=== PATIENT | female | born 1985 | race Caucasian/White ===

== ENCOUNTER 2020-05-24 18:13 | Observation (INO) | payer MEDICAID, SELFPAY ==
[~2020-05-24] VITALS: Ht 165.1 cm; Wt 101.6 kg
[2020-05-24] MEDS ORDERED: LACTATED RINGERS 1,000 ML IV SCH (18:55)
[2020-05-24] MEDS ORDERED: BETAMETH ACET/BETAMETH NA PH 30 MG/5 ML VIAL IM ONE (19:07)
[2020-05-24 19:20] LABS: APPEARANCE,URINE CLEAR (CLEAR); BILIRUBIN,URINE NEGATIVE (NEGATIVE); BLOOD, URINE NEGATIVE (NEGATIVE); COLOR,URINE YELLOW (YELLOW); LEUKOCYTE ESTERASE ,URINE NEGATIVE (NEGATIVE); NITRITE, URINE NEGATIVE (NEGATIVE); PH,URINE 5.5 (5.0-9.0); UGLUCOSE 1+ (NEGATIVE)
[2020-05-24 19:31] LABS: BARBITURATE, URINE NEGATIVE ng/ml (NEG <=200); BENZODIAZEPINE, URINE NEGATIVE ng/mL (NEG <=200); CANNABINOID, URINE POSITIVE ng/mL (NEG <=50); COCAINE, URINE NEGATIVE ng/mL (NEG <=300); OPIATE, URINE NEGATIVE ng/mL (NEG <=2000); PHENCYCLIDINE SCREEN,URINE NEGATIVE ng/mL (NEG <=25)
[2020-05-24 20:19] VITALS: BP 149/97
== END 2020-05-24 19:25 | disposition home or self-care (01) ==
LOC: MLD 18:13
PROVIDERS: ADMIT Obstetrics & Gynecology; ATTEND Obstetrics & Gynecology
DX: O26.893 Other specified pregnancy related conditions, third trimester (principal); Z20.828 Contact with and (suspected) exposure to other viral communicable diseases; R10.9 Unspecified abdominal pain; O99.891 Other specified diseases and conditions complicating pregnancy; M54.9 Dorsalgia, unspecified; Z3A.36 36 weeks gestation of pregnancy
CPT/HCPCS: 59025; 80305; 81003; 87426; 87653; 96372; G0378; J0702

== ENCOUNTER 2020-05-25 19:09 | Observation (INO) | payer MEDICAID, SELFPAY ==
[~2020-05-25] VITALS: Ht 165.1 cm; Wt 99.8 kg
[2020-05-25 19:38] VITALS: BP 146/74
[2020-05-25] MEDS ORDERED: BETAMETH ACET/BETAMETH NA PH 30 MG/5 ML VIAL IM ONE (19:45)
[2020-05-25] MEDS ORDERED: BETAMETH ACET/BETAMETH NA PH 30 MG/5 ML VIAL IM SCH (20:40)
== END 2020-05-25 20:30 | disposition home or self-care (01) ==
LOC: MLD 19:09
PROVIDERS: ADMIT Obstetrics & Gynecology; ATTEND Obstetrics & Gynecology
DX: O26.893 Other specified pregnancy related conditions, third trimester (principal); R10.9 Unspecified abdominal pain; O99.891 Other specified diseases and conditions complicating pregnancy; M54.5 Low back pain; Z3A.36 36 weeks gestation of pregnancy
CPT/HCPCS: 59025; 96372; G0378; J0702

== ENCOUNTER 2020-05-29 03:05 | Inpatient (IN) | payer MEDICAID, SELFPAY ==
[~2020-05-29] VITALS: Ht 165.1 cm; Wt 99.8 kg
[2020-05-29] MEDS ORDERED: MORPHINE SULFATE 2 MG/ML SYR IVP PRN (04:10)
[2020-05-29] MEDS ORDERED: ONDANSETRON 4 MG/2 ML VIAL IVP PRN ×3 (04:10→06:10)
[2020-05-29] MEDS ORDERED: LACTATED RINGERS 1,000 ML IV SCH (04:35)
[2020-05-29] MEDS ORDERED: CITRIC ACID/SODIUM CITRATE 30 ML UDC PO SCH (04:35)
[2020-05-29] MEDS ORDERED: CITRIC ACID/SODIUM CITRATE 30 ML UDC ONE (04:52)
[2020-05-29] MEDS ORDERED: ceFAZolin 1,000 MG VIAL ONE (04:52)
[2020-05-29] MEDS ORDERED: MORPHINE PRES FREE 10 MG/10 ML AMP IV ONE (05:00)
[2020-05-29] MEDS ORDERED: MORPHINE SULFATE 10 MG/ML VIAL ONE (05:12)
[2020-05-29] MEDS ORDERED: DEXAMETHASONE 4 MG/ML VIAL ONE (05:28)
[2020-05-29] MEDS ORDERED: ONDANSETRON 4 MG/2 ML VIAL ONE (05:28)
[2020-05-29] MEDS ORDERED: ePHEDrine 50 MG/ML VIAL ONE (05:28)
[2020-05-29] MEDS ORDERED: METOCLOPRAMIDE 10 MG/2 ML INJ VIAL ONE (05:28)
[2020-05-29 05:30] LABS: BASOPHILS % (AUTO) 0.3 % (0.0-2.0); EOSINOPHILS # (AUTO) 0.1 K/uL (0-0.4); EOSINOPHILS % (AUTO) 0.6 % (0.0-4.0); HEMATOCRIT 35.6 % (36-48); HEMOGLOBIN 11.5 g/dL (12.0-16.0); LYMPHOCYTES # (AUTO) 2.6 K/uL (2.5-16.5); LYMPHOCYTES % (AUTO) 26.9 % (20.5-51.1); MEAN CORPUSCULAR HEMOGLOBIN 25 pg (27-31); MEAN CORPUSCULAR HGB CONC 32 g/dL (33-37); MEAN CORPUSCULAR VOLUME 77.2 fL (80-94); MONOCYTES # (AUTO) 1.1 K/uL (0.8-1.0); MONOCYTES % (AUTO) 11.9 % (1.7-9.3); NEUTROPHILS # (AUTO) 5.8 K/uL (1.8-7.7); NEUTROPHILS % (AUTO) 60.3 % (42.2-75.2); PLATELET COUNT (AUTO) 197 K/uL (140-450); RED BLOOD CELL COUNT(AUTO) 4.61 MIL/uL (4.20-5.40); WHITE BLOOD COUNT (AUTO) 9.6 K/uL (4.8-10.8)
[2020-05-29 06:03] LABS: ALBUMIN 2.6 g/dL (3.4-5.0); ANION GAP 14.3 (8-16); CREATININE 0.8 mg/dL (0.6-1.3); POTASSIUM 4.3 mmol/L (3.5-5.1); TOTAL BILIRUBIN 0.3 mg/dL (0.0-1.0)
[2020-05-29 06:06] LABS: APPEARANCE,URINE CLEAR (CLEAR); BILIRUBIN,URINE NEGATIVE (NEGATIVE); BLOOD, URINE TRACE-I (NEGATIVE); COLOR,URINE YELLOW (YELLOW); LEUKOCYTE ESTERASE ,URINE NEGATIVE (NEGATIVE); NITRITE, URINE NEGATIVE (NEGATIVE); PH,URINE 5.5 (5.0-9.0); UGLUCOSE NEGATIVE (NEGATIVE)
[2020-05-29] MEDS ORDERED: NALOXONE 0.4 MG/ML VIAL IVP PRN ×3 (06:10)
[2020-05-29] MEDS ORDERED: MEPERIDINE 25 MG/ML SYR IVP PRN (06:10)
[2020-05-29] MEDS ORDERED: OXYTOCIN 20 UNITS in LACTATED RINGERS 1,000 ML IV SCH ×2 (06:10→06:40)
[2020-05-29] MEDS ORDERED: diphenhydrAMINE 50 MG/ML VIAL IVP PRN ×2 (06:10)
[2020-05-29] MEDS ORDERED: HYDROmorphone 1 MG/ML AMP IVP PRN (06:10)
[2020-05-29 06:20] LABS: BARBITURATE, URINE NEGATIVE ng/ml (NEG <=200); BENZODIAZEPINE, URINE NEGATIVE ng/mL (NEG <=200); CANNABINOID, URINE POSITIVE ng/mL (NEG <=50); COCAINE, URINE NEGATIVE ng/mL (NEG <=300); OPIATE, URINE NEGATIVE ng/mL (NEG <=2000); PHENCYCLIDINE SCREEN,URINE NEGATIVE ng/mL (NEG <=25)
[2020-05-29 06:31] LABS: RBC,URINE 0-5 /HPF (0-5); WBC,URINE 0-5 /HPF (0-5)
[2020-05-29] MEDS ORDERED: METHYLERGONOVINE 0.2 MG/ML AMP IM PRN (06:40)
[2020-05-29] MEDS ORDERED: MEASLES, MUMPS, AND RUBELLA 1 VIAL SQVAC PRN (06:40)
[2020-05-29] MEDS ORDERED: OXYTOCIN 20 UNITS/LR PREMIX 1,000 ML IV ONE ×3 (06:47→23:27)
[2020-05-29] MEDS ORDERED: bisacodyL 10 MG SUPP RC SCH (09:00)
--- NOTE | 2020-05-29 09:32 | NUR ---
PATIENT HAS BEEN SCREENED AND CATEGORIZED LOW NUTRITION RISK. PATIENT WILL BE SEEN WITHIN 7 DAYS OF ADMISSION. 06/04/[address]
[2020-05-29] MEDS: KETOROLAC 30 MG/ML VIAL IM/IVP SCH ×3 (12:25→23:52)
[2020-05-29] MEDS ORDERED: PROMETHAZINE 25 MG/ML VIAL IVP PRN (18:45)
[2020-05-30] MEDS: KETOROLAC 30 MG/ML VIAL IM/IVP SCH (06:02)
[2020-05-30 06:57] LABS: BASOPHILS % (AUTO) 0.2 % (0.0-2.0); EOSINOPHILS % (AUTO) 0.3 % (0.0-4.0); HEMATOCRIT 27.6 % (36-48); HEMOGLOBIN 8.9 g/dL (12.0-16.0); LYMPHOCYTES # (AUTO) 2.2 K/uL (2.5-16.5); LYMPHOCYTES % (AUTO) 16.6 % (20.5-51.1); MEAN CORPUSCULAR HEMOGLOBIN 25 pg (27-31); MEAN CORPUSCULAR HGB CONC 32 g/dL (33-37); MONOCYTES # (AUTO) 1.2 K/uL (0.8-1.0); MONOCYTES % (AUTO) 9.4 % (1.7-9.3); NEUTROPHILS # (AUTO) 9.6 K/uL (1.8-7.7); NEUTROPHILS % (AUTO) 73.5 % (42.2-75.2); PLATELET COUNT (AUTO) 149 K/uL (140-450); RED BLOOD CELL COUNT(AUTO) 3.58 MIL/uL (4.20-5.40); RED CELL DISTRIBUTION WIDTH 16.1 % (11.6-13.7); WHITE BLOOD COUNT (AUTO) 13.1 K/uL (4.8-10.8)
[2020-05-30] MEDS: oxyCODONE/APAP 5/325 MG 1 TAB TAB PO PRN ×2 (08:54→12:37)
== END 2020-05-30 15:15 | disposition home or self-care (01) | DRG 540 ==
LOC: MLD 03:05 → OBSVTOIN 04:06 → MFCC 07:40
PROVIDERS: ADMIT Obstetrics & Gynecology; ATTEND Obstetrics & Gynecology
PROC: 10D00Z1 Extraction of Products of Conception, Low, Open Approach (ICD-10-PCS; principal; 2020-05-29 04:45)
DX: O34.211 Maternal care for low transverse scar from previous cesarean delivery (principal); O60.23X0 Term delivery with preterm labor, third trimester, not applicable or unspecified; Z37.0 Single live birth; Z3A.37 37 weeks gestation of pregnancy; O99.02 Anemia complicating childbirth; D62 Acute posthemorrhagic anemia; O24.92 Unspecified diabetes mellitus in childbirth; Z91.018 Allergy to other foods
CPT/HCPCS: 36415; 80053; 80305; 81001; 85025; 86592; 86762; 86886; 86900; 86901; 87340; G0378; J0690; J1100; J1885; J2270; J2405; J2590; J2765; J7120

== ENCOUNTER 2021-03-19 12:31 | Observation (INO) | payer MEDICAID, SELFPAY ==
[~2021-03-19] VITALS: Ht 165.1 cm; Wt 81.6 kg
[2021-03-19] MEDS ORDERED: MORPHINE SULFATE 4 MG/ML SYR ONE (12:41)
--- NOTE | 2021-03-19 12:49 | NUR ---
42 Y/O F BIBA FROM HOME, C/O PELVIC PAIN THAT STARTED TODAY. PT STATES SHE DIDNT KNOW SHE WAS , MOTHER STATES "WATER BROKE OUT AT HOME". PT VISIBLY IN DISTRESS AT THIS TIME, C/O EXTREME PAIN. DENIES N/V/D; SKIN IS PINK/WARM/DRY; AAOX4 ; LUNGS CLEAR BL; HR EVEN AND REGULAR; PT DENIES ANY FEVER, CP, SOB, OR COUGH AT THIS TIME; PATIENT STATES PAIN OF 10/10 AT THIS TIME; VSS; PATIENT POSITIONED FOR COMFORT; HOB ELEVATED; BEDRAILS UP X2; BED DOWN. ER MD MADE AWARE OF PT STATUS. PMH: DENIES NKA MED: DENIES 8G 3T 0P 5A 3L
[2021-03-19 12:50] VITALS: BP 134/83
--- NOTE | 2021-03-19 12:50 | NUR ---
US AT BEDSIDE.
[2021-03-19] MEDS ORDERED: MORPHINE SULFATE 4 MG/ML SYR IVP ONE ×2 (13:00→13:05)
--- NOTE | 2021-03-19 13:00 | NUR ---
PT UNABLE TO GIVE URINE AT THIS TIME.
[2021-03-19 13:08] LABS: BASOPHILS % (AUTO) 0.1 % (0.0-2.0); EOSINOPHILS % (AUTO) 0.2 % (0.0-4.0); HEMOGLOBIN 13.1 g/dL (12.0-16.0); LYMPHOCYTES # (AUTO) 1.4 K/uL (2.5-16.5); LYMPHOCYTES % (AUTO) 6.9 % (20.5-51.1); MEAN CORPUSCULAR HEMOGLOBIN 26 pg (27-31); MEAN CORPUSCULAR HGB CONC 33 g/dL (33-37); MEAN CORPUSCULAR VOLUME 78.6 fL (80-94); MONOCYTES # (AUTO) 1.1 K/uL (0.8-1.0); MONOCYTES % (AUTO) 5.5 % (1.7-9.3); NEUTROPHILS # (AUTO) 17.5 K/uL (1.8-7.7); NEUTROPHILS % (AUTO) 87.3 % (42.2-75.2); PLATELET COUNT (AUTO) 250 K/uL (140-450); RED BLOOD CELL COUNT(AUTO) 5.09 MIL/uL (4.20-5.40); RED CELL DISTRIBUTION WIDTH 17.2 % (11.6-13.7); WHITE BLOOD COUNT (AUTO) 20.1 K/uL (4.8-10.8)
--- NOTE | 2021-03-19 13:08 | NUR ---
TRANSPORT TO ROOM 216 L&D AT THIS TIME 2 RN.
[2021-03-19] MEDS ORDERED: PROMETHAZINE 25 MG/ML VIAL IM PRN (13:25)
[2021-03-19] MEDS ORDERED: MORPHINE SULFATE 5 MG/ML VIAL IVP PRN (13:25)
[2021-03-19] MEDS ORDERED: MORPHINE SULFATE 10 MG/ML VIAL ONE ×2 (13:27→18:45)
[2021-03-19] MEDS ORDERED: PROMETHAZINE 25 MG/ML VIAL ONE (13:37)
[2021-03-19 13:46] VITALS: BP 135/82
[2021-03-19 13:54] LABS: ALBUMIN 3.5 g/dL (3.4-5.0); ANION GAP 13.4 (8-16); CARBON DIOXIDE 24.1 mmol/L (21-32); POTASSIUM 3.5 mmol/L (3.5-5.1); TOTAL BILIRUBIN 0.8 mg/dL (0.0-1.0)
[2021-03-19] MEDS ORDERED: LACTATED RINGERS 1,000 ML IV SCH ×2 (14:20→23:25)
[2021-03-19] MEDS ORDERED: KETOROLAC 30 MG/ML VIAL ONE (14:33)
[2021-03-19] MEDS ORDERED: OXYTOCIN 10 UNITS/ML VIAL ONE (15:03)
[2021-03-19] MEDS ORDERED: OXYTOCIN 10 UNITS/ML VIAL IV SCH (15:05)
[2021-03-19] MEDS ORDERED: KETOROLAC 30 MG/ML VIAL IVP SCH (18:00)
[2021-03-19] MEDS ORDERED: MISOPROSTOL 100 MCG TAB ONE (18:47)
[2021-03-19] MEDS ORDERED: MISOPROSTOL 100 MCG TAB PO SCH (18:50)
[2021-03-19 20:11] LABS: CREATININE 0.7 mg/dL (0.6-1.3)
[2021-03-19] MEDS ORDERED: MIDAZOLAM 2 MG/2 ML VIAL ONE (23:11)
[2021-03-19] MEDS ORDERED: fentaNYL citrate 0.05 MG/ML VIAL ONE (23:11)
[2021-03-19] MEDS ORDERED: PROPOFOL 200 MG/20 ML VIAL IV ONE (23:12)
[2021-03-19] MEDS ORDERED: ONDANSETRON 4 MG/2 ML VIAL IVP PRN (23:25)
[2021-03-19] MEDS ORDERED: HYDROmorphone 1 MG/ML AMP IVP PRN (23:25)
[2021-03-19] MEDS ORDERED: MEPERIDINE 25 MG/ML SYR IVP PRN (23:25)
[2021-03-19] MEDS ORDERED: diphenhydrAMINE 50 MG/ML VIAL IVP PRN (23:25)
[2021-03-20] MEDS ORDERED: ONDANSETRON 4 MG/2 ML VIAL ONE (00:14)
[2021-03-20] MEDS ORDERED: DEXAMETHASONE 4 MG/ML VIAL ONE (00:14)
[2021-03-20] MEDS ORDERED: METHYLERGONOVINE 0.2 MG/ML AMP IM PRN (03:10)
[2021-03-20] MEDS ORDERED: METHYLERGONOVINE 0.2 MG TAB PO PRN (03:10)
[2021-03-20] MEDS ORDERED: IBUPROFEN 800 MG TAB PO PRN (03:10)
[2021-03-20] MEDS ORDERED: OXYTOCIN 10 UNITS/ML VIAL IM PRN (03:10)
[2021-03-20] MEDS ORDERED: IBUPROFEN 600 MG TAB PO PRN (07:25)
[2021-03-20 08:22] LABS: HEMATOCRIT 29.9 % (36-48); HEMOGLOBIN 9.8 g/dL (12.0-16.0)
== END 2021-03-20 13:25 | disposition home or self-care (01) ==
LOC: MED 12:31 → EDSTATUS 13:14 → MFCC 13:20
PROVIDERS: ADMIT Obstetrics & Gynecology; ATTEND Obstetrics & Gynecology
DX: O03.4 Incomplete spontaneous abortion without complication (principal); Z20.822 Contact with and (suspected) exposure to COVID-19; D62 Acute posthemorrhagic anemia; O09.521 Supervision of elderly multigravida, first trimester; Z90.49 Acquired absence of other specified parts of digestive tract; Z3A.12 12 weeks gestation of pregnancy
CPT/HCPCS: 36415; 59812; 76805; 80053; 83690; 84702; 85018; 85025; 87426; 88300; 88305; 96361; 96374; 96376; 99291; G0378; J1100; J1885; J2250; J2270; J2405; J2550; J2590; J2704; J3010; J7030; Q0092

== ENCOUNTER 2023-05-27 23:39 | Emergency (ER) | payer MEDICAID, OTHER ==
[~2023-05-27] VITALS: Ht 165.1 cm; Wt 86.2 kg
[2023-05-27 23:54] VITALS: BP 144/95; PULSE 96; RESP 20; TEMP 97.8; O2SAT 98
[2023-05-28] MEDS ORDERED: ACET-8905 PO (01:22)
[2023-05-28] MEDS ORDERED: AMOX500C25 PO (01:22)
[2023-05-28] MEDS ORDERED: NAPR-54 PO (01:22)
[2023-05-28] MEDS ORDERED: HYDROcodone/APAP 5/325 MG 1 TAB TAB PO ONE (01:25)
[2023-05-28 02:00] VITALS: BP 144/95; PULSE 96; RESP 20; TEMP 97.8; O2SAT 98
== END 2023-05-28 02:00 | disposition home or self-care (01) ==
LOC: MED 23:39
DX: K04.7 Periapical abscess without sinus (principal); Z79.899 Other long term (current) drug therapy
CPT/HCPCS: 99283

== ENCOUNTER 2023-10-05 09:10 | Emergency (ER) | payer SELFPAY ==
[~2023-10-05] VITALS: Ht 165.1 cm; Wt 84.4 kg
[~2023-10-05 09:10] MED LIST: ACET-8905 PO; AMOX500C25 PO; NAPR-337 PO
[2023-10-05 09:14] VITALS: BP 141/83; PULSE 96; RESP 16; TEMP 98.1; O2SAT 97
[2023-10-05 09:54] VITALS: BP 133/91; PULSE 98; RESP 16; TEMP 98.1; O2SAT 97
== END 2023-10-05 09:55 | disposition home or self-care (01) ==
LOC: MED 09:10
DX: B30.9 Viral conjunctivitis, unspecified (principal); F17.200 Nicotine dependence, unspecified, uncomplicated; Z90.49 Acquired absence of other specified parts of digestive tract; Z98.890 Other specified postprocedural states; Z79.899 Other long term (current) drug therapy; Z91.018 Allergy to other foods
CPT/HCPCS: 99281

== ENCOUNTER 2023-10-11 18:19 | Emergency (ER) | payer SELFPAY ==
[~2023-10-11] VITALS: Ht 165.1 cm; Wt 82.6 kg
[2023-10-11 18:33] VITALS: BP 140/55; PULSE 90; RESP 20; TEMP 98; O2SAT 98
[2023-10-11] MEDS ORDERED: ERYT5OIN51 OP (18:59)
[2023-10-11] MEDS: FLUORESCEIN OPTH STRIP 1 MG OP ONE (19:07)
[2023-10-11] MEDS: TETRACAINE HCL/PF 0.5% OPTH 4 ML BTL OP ONE (19:08)
[2023-10-11 19:37] VITALS: BP 132/55; PULSE 90; RESP 20; TEMP 98; O2SAT 98
== END 2023-10-11 19:37 | disposition home or self-care (01) ==
LOC: MED 18:19
DX: H10.9 Unspecified conjunctivitis (principal); R03.0 Elevated blood-pressure reading, without diagnosis of hypertension; Z79.899 Other long term (current) drug therapy; Z91.018 Allergy to other foods
CPT/HCPCS: 99283